=== PATIENT | female | born 1965 | race Caucasian/White ===

== ENCOUNTER 2020-11-11 12:04 | Emergency (ER) | payer BC, SELFPAY ==
[2020-11-11 12:21] VITALS: BP 145/87; PULSE 89; RESP 17; TEMP 37.4; O2SAT 98
[2020-11-11 15:46] LABS: Alanine Aminotransferase 13 IU/L (<35); Albumin 4.6 g/dL (3.5-5.0); Albumin Globulin Ratio 1.4 (1.0-2.8); Alkaline Phosphatase 75 U/L (38-126); Aspartate Aminotransferase 20 IU/L (14-36); BUN Creatinine Ratio 16.5 (6-22); Bilirubin Total 1.7 mg/dL (0.2-1.3); Blood Urea Nitrogen 13 mg/dL (7-17); Calcium 10.1 mg/dL (8.4-10.2); Carbon Dioxide 27 mmol/L (22-32); Chloride 98 mmol/L (98-107); Estimated Glomerular Filt Rate > 60.0 mL/min (>60); Globulin 3.3 g/dL (1.7-4.1); Glucose 92 mg/dL (70-100); HEMOLYSIS < 15 (0-50); Lipase 70 U/L (23-300); Potassium 4.4 mmol/L (3.4-5.1); Sodium 133 mmol/L (137-145); Total Protein 7.9 g/dL (6.3-8.2)
[2020-11-11 15:59] LABS: Add Manual Diff / Slide Review NO; Basophils Absolute Auto 100 /uL (0-100); Basophils Percent Auto 0.5 % (0-2); Eosinophils Absolute Auto 0 /uL (0-450); Eosinophils Percent Auto 0.1 % (2-4); Hematocrit 47.9 % (36-46); Hemoglobin 16.2 g/dL (12.0-16.0); Lymphocytes Absolute Auto 1900 /uL (1100-4500); Lymphocytes Percent Auto 11.5 % (25-40); Mean Corpuscular HGB Conc 33.7 % (30-36); Mean Corpuscular Volume 97.8 fL (80-100); Monocytes Absolute Auto 1200 /uL (0-900); Neutrophils Absolute Auto 13400 /uL (1500-7000); Neutrophils Percent Auto 80.9 % (50-75); Platelet Count 215 X10^3/uL (150-400); Red Cell Distribution Width 14.5 % (11.6-14.8); White Blood Cell Count 16.5 X10^3/uL (4.5-11.0)
[2020-11-11 16:07] VITALS: PULSE 71; O2SAT 96
[2020-11-11 16:30] VITALS: BP 118/77; PULSE 74; O2SAT 96
--- NOTE | 2020-11-11 16:32 | ED_ITS ---
HPI - Abdominal Pain General Chief Complaint: Abdominal Pain Stated Complaint: possible diverticulitis Time Seen by Provider: 11/11/20 16:31 Source: patient and family Mode of arrival: Ambulatory History of Present Illness HPI narrative: This is a 55-year-old female with known history of IBS but with no other past medical history. Patient does not take any daily medications. She states she started having discomfort in her lower abdomen 4 days ago which has been slowly worsening over time. She states it feels to when she has had ovarian cyst when she was young. She also states it feels like when she has had episodes of IBS but she will typically have a buildup of pain, and episode of explosive diarrhea and the pain resolves. Patient states she has not had any fevers. She has been nauseated but has not been actively vomiting. She has had bowel movements which she states were slightly discolored but she has also eaten many many cherries. She denies any bright red blood or melanotic stools. Patient denies any urinary symptoms, no frequency dysuria or sense of urgency. She has some mild lower back discomfort but majority is in her lower abdomen particularly on the left. She has had a colonoscopy 27 years after having an episode of bright red blood. She has not had 1 since then. She denies any other surgeries. Related Data Previous Rx's Medication Instructions Recorded amoxicillin 875 mg-potassium 1 tab PO Q12H #28 tab 11/11/20 clavulanate 125 mg tablet (Augmentin) meloxicam 7.5 mg tablet 7.5 mg PO BID PRN #20 tab 11/11/20 Allergies Allergy/AdvReac Type Severity Reaction Status Date / Time Sulfa (Sulfonamide Allergy Verified 11/11/20 12:26 Antibiotics) Review of Systems Review of Systems ROS Unobtainable: All systems reviewed & are unremarkable except as noted in HPI and below Patient History Social History Smoking Status: Current every day smoker Smoking Status: Current every day smoker tobacco type: cigarettes alcohol intake frequency: 0-2 drinks per day Substance Use Type: does not use Exam Narrative Exam Narrative: GENERAL: Alert and oriented x three, well-nourished female in mild to moderate distress. HEENT: Head normocephalic, atraumatic, EOMI, pupils reactive, face symmetric, moist mucous membranes NECK: Supple, full range of motion CARDIOVASCULAR: Regular rate and rhythm without murmurs, rubs or gallops. RESPIRATORY: Breath sounds equal bilaterally, no wheezes rales or rhonchi. ABDOMEN: Soft, patient is quite tender suprapubically and left lower quadrant. Normoactive bowel sounds all 4 quadrants. No guarding or rebound, rigidity, no mass : No CVA tenderness bilaterally. EXTREMITIES: Normal range of motion, no clubbing or edema. Neurovascularly intact NEUROLOGICAL: Cranial nerves II through XII grossly intact. Moving all extremities SKIN: Warm, dry, no petechiae, no rashes or lesions. Initial Vital Signs Initial Vital Signs: Vital Signs Temperature 99.4 F 11/11/20 12:21 Pulse Rate 89 11/11/20 12:21 Respiratory Rate 17 11/11/20 12:21 Blood Pressure 145/87 H 11/11/20 12:21 Pulse Oximetry 98 11/11/20 12:21 Course Orders Ordered: Discontinued Medications Amoxicillin/Clavulanate Potassium (Amoxicillin/Clav 875/125 Mg) 1 tab PO NOW ONE Stop: 11/11/20 17:48 Last Admin: 11/11/20 18:01 Dose: 1 tab Documented by: DIMAS Sodium Chloride (Normal Saline 0.9%) 1,000 mls @ 1,000 mls/hr IV BOLUS PRN PRN Reason: Fluid replacement Last Infusion: 11/11/20 17:58 Dose: 0 mls/hr Documented by: Admin: 11/11/20 17:00 Dose: 1,000 mls/hr Documented by: QUIANA Ketorolac Tromethamine (Ketorolac 30 Mg/Ml Vial) 30 mg IV NOW ONE Stop: 11/11/20 16:50 Last Admin: 11/11/20 17:00 Dose: 30 mg Documented by: QUIANA Ondansetron HCl (Ondansetron 4 Mg/2 Ml Inj) 4 mg IV NOW ONE Stop: 11/11/20 16:50 Last Admin: 11/11/20 17:00 Dose: 4 mg Documented by: QUIANA Vital Signs Vital signs: Vital Signs - 8 hr 11/11/20 12:21 11/11/20 16:07 11/11/20 16:30 Temperature 99.4 F Pulse Rate 89 71 74 Respiratory Rate 17 Blood Pressure 145/87 H 118/77 Pulse Oximetry 98 96 96 11/11/20 17:06 Temperature Pulse Rate 84 Respiratory Rate Blood Pressure 140/79 Pulse Oximetry 98 MDM - Abdominal Pain Lab Data Result diagrams: 11/11/20 15:15 11/11/20 15:15 Labs: Lab Results 11/11/20 11/11/20 Range/Units 15:15 15:15 WBC 16.5 H (4.5-11.0) X10^3/uL RBC 4.90 (4.0-5.2) X10^6/uL Hgb 16.2 H (12.0-16.0) g/dL Hct 47.9 H (36-46) % MCV 97.8 (80-100) fL MCH 33.0 (26-34) PG MCHC 33.7 (30-36) % RDW 14.5 (11.6-14.8) % Plt Count 215 (150-400) X10^3/uL Neut % (Auto) 80.9 H (50-75) % Lymph % (Auto) 11.5 L (25-40) % [place] % (Auto) 7.0 (3-14) % Eos % (Auto) 0.1 L (2-4) % Baso % (Auto) 0.5 (0-2) % Neut # (Auto) 48457 H (5444-8024) /uL Lymph # (Auto) 1900 (0366-9771) /uL [place] # (Auto) 1200 H (0-900) /uL Eos # (Auto) 0 (0-450) /uL Baso # (Auto) 100 (0-100) /uL Sodium 133 L (137-145) mmol/L Potassium 4.4 (3.4-5.1) mmol/L Chloride 98 (98-107) mmol/L Carbon Dioxide 27 (22-32) mmol/L BUN 13 (7-17) mg/dL Creatinine 0.79 (0.52-1.04) mg/dL Estimated GFR > 60.0 (>60) mL/min BUN/Creatinine Ratio 16.5 (6-22) Glucose 92 (70-100) mg/dL Calcium 10.1 (8.4-10.2) mg/dL Total Bilirubin 1.7 H (0.2-1.3) mg/dL AST 20 (14-36) IU/L ALT 13 (<35) IU/L Alkaline Phosphatase 75 (38-126) U/L Total Protein 7.9 (6.3-8.2) g/dL Albumin 4.6 (3.5-5.0) g/dL Globulin 3.3 (1.7-4.1) g/dL Albumin/Globulin Ratio 1.4 (1.0-2.8) Lipase 70 (23-300) U/L Imaging Data CT scan - abdomen/pelvis: Radiologist's Impression: [address] [id number] Scan ReportSigned Patient: Geraldine Garcia WMR#: [id number]: [id number]:[id number]/Sex: 55 / FDate of Service: 11/11/20Loc: EDAccession Number: [id number] Procedure: CT abdomen pelvis w con Ordering Provider: Sully Echavarria D.O. PROCEDURE: CT ABDOMEN PELVIS W CON INDICATIONS: LLQ/suprapubic tenderness, ? diverticulitis TECHNIQUE: After the administration of intravenous contrast, axial sections acquired from the lung bases to the pubic symphysis. Coronal and sagittal reformats were performed. For radiation dose reduction, the following was used: automated exposure control, adjustment of mA and/or kV according to patient size. COMPARISON: None. FINDINGS: Image quality: Excellent. Lung bases: Unremarkable. Heart: No significant findings. ABDOMEN: Liver: Unremarkable-the liver contains several water density simple appearing small cysts. Gallbladder: Normal. Biliary ducts: Unremarkable. Pancreas: Unremarkable. Spleen: Unremarkable. Adrenal Glands: Unremarkable. Kidneys and Ureters: Unremarkable. Stomach and Bowel: Stomach, and small bowel loops, are unremarkable. The colon at the sigmoid bowel, proximal half, is abnormally thickened with adjacent pericolonic edema but no abscess. The appearance is characteristic of acute diverticulitis. Normal appendix is found. Peritoneum: No abnormal intraperitoneal fluid. No free air. Ventral Wall: No hernias. Abdominal Nodes: No retroperitoneal or mesenteric adenopathy by size criteria. Vessels: Aorta and inferior vena cava are normal in size. PELVIS: Pelvic Organs: Unremarkable. Bladder: Unremarkable. Pelvic Nodes: No enlarged lymph nodes. Miscellaneous: No hernias are seen. Bones: Unremarkable. IMPRESSION: Acute diverticulitis at the proximal half of the sigmoid colon, without peridiverticular abscess. Normal appendix found. Dictated by: Elpidio Kahn M.D. on 11/11/2020 at 17:30 Approved by: Elpidio Kahn M.D. on 11/11/2020 at 17:38 [facility] Narrative Medical decision making narrative: This is a 55-year-old female who comes with lower abdominal discomfort which shows diverticulitis is on CT without abscess o r perforation. Patient does have some nausea vomiting but was able to tolerate oral medication here. She has elevated white count but no other signs of sepsis. Discharge Plan Departure Patient Disposition: Home Clinical Impression: Diverticulitis Instructions: DI for Diverticulitis Activity Restrictions/Additional Instructions: Follow-up in the next 7-10 days if you are not having significant improvement in your symptoms. Take oral antibiotics until they are completely gone. You may wish to take yogurt or a probiotic once daily to maintain gut juventino. I would recommend taking some sort of fiber supplement regularly. There is also prescription for non narcotic pain medication you may take every 12 hours as needed. If this is an adequate you may take Tylenol up to a 1000 mg every 8 hours in addition to this medication. Prescription was sent to [facility] in [place]. Please return for fevers, worsening abdominal pain, persistent vomiting, lightheadedness or passing out, black or bloody stools, or other new or worsening symptoms. Prescriptions: New meloxicam 7.5 mg tablet 7.5 mg PO BID PRN (Reason: pain) Qty: 20 RF: 0 amoxicillin-pot clavulanate [Augmentin] 875-125 mg tablet 1 tab PO Q12H Qty: 28 RF: 0
--- NOTE | 2020-11-11 16:49 | DI.CT.S_ITS ---
PROCEDURE: CT ABDOMEN PELVIS W CON INDICATIONS: LLQ/suprapubic tenderness, ? diverticulitis TECHNIQUE: After the administration of intravenous contrast, axial sections acquired from the lung bases to the pubic symphysis. Coronal and sagittal reformats were performed. For radiation dose reduction, the following was used: automated exposure control, adjustment of mA and/or kV according to patient size. COMPARISON: None. FINDINGS: Image quality: Excellent. Lung bases: Unremarkable. Heart: No significant findings. ABDOMEN: Liver: Unremarkable-the liver contains several water density simple appearing small cysts. Gallbladder: Normal. Biliary ducts: Unremarkable. Pancreas: Unremarkable. Spleen: Unremarkable. Adrenal Glands: Unremarkable. Kidneys and Ureters: Unremarkable. Stomach and Bowel: Stomach, and small bowel loops, are unremarkable. The colon at the sigmoid bowel, proximal half, is abnormally thickened with adjacent pericolonic edema but no abscess. The appearance is characteristic of acute diverticulitis. Normal appendix is found. Peritoneum: No abnormal intraperitoneal fluid. No free air. Ventral Wall: No hernias. Abdominal Nodes: No retroperitoneal or mesenteric adenopathy by size criteria. Vessels: Aorta and inferior vena cava are normal in size. PELVIS: Pelvic Organs: Unremarkable. Bladder: Unremarkable. Pelvic Nodes: No enlarged lymph nodes. Miscellaneous: No hernias are seen. Bones: Unremarkable. IMPRESSION: Acute diverticulitis at the proximal half of the sigmoid colon, without peridiverticular abscess. Normal appendix found. Dictated by: Elpidio Kahn M.D. on 11/11/2020 at 17:30 Approved by: Elpidio Kahn M.D. on 11/11/2020 at 17:38
[2020-11-11] MEDS: KETOROLAC 30 MG/ML VIAL IV (17:00)
[2020-11-11] MEDS: ONDANSETRON 4 MG/2 ML INJ IV (17:00)
[2020-11-11] MEDS: SODIUM CHLORIDE 0.9% 1,000 ML 1000 ML IV (17:00)
[2020-11-11 17:06] VITALS: BP 140/79; PULSE 84; O2SAT 98
[2020-11-11 17:30] VITALS: BP 120/79; PULSE 68; O2SAT 95
[2020-11-11] MEDS: AMOXICILLIN/CLAV 875/125 MG 1 TAB PO (18:01)
== END 2020-11-11 18:11 | disposition home or self-care (01) ==
PROVIDERS: Emergency Provider Emergency Medicine
DX: K57.92 Diverticulitis of intestine, part unspecified, without perforation or abscess without bleeding (principal); R11.2 Nausea with vomiting, unspecified
CPT/HCPCS: 36415; 74177; 80053; 83690; 85025; 96361; 96374; 96375; 99284; J1885; J2405; Q9967